=== PATIENT | female | born 2000 | race Caucasian/White ===

== ENCOUNTER 2022-09-11 10:30 | Day surgery (SDC) | payer OTHER ==
[~2022-09-11] VITALS: Ht 167.6 cm; Wt 107.2 kg
[2022-09-11 11:23] LABS: HCG,QUAL RESULT NEGATIVE (NEGATIVE)
[2022-09-11 12:36] LABS: BASOPHILS % (AUTO) 0.4 % (0.0-2.0); EOSINOPHILS # (AUTO) 0.2 K/uL (0.0-0.4); HEMATOCRIT 44.7 % (36-48); LYMPHOCYTES # (AUTO) 1.5 K/uL (1.0-5.5); LYMPHOCYTES % (AUTO) 14.2 % (20.5-51.5); MEAN CORPUSCULAR HEMOGLOBIN 32 pg (27-31); MEAN CORPUSCULAR HGB CONC 34 % (32-36); MEAN CORPUSCULAR VOLUME 95 fL (79.0-98.0); MONOCYTES # (AUTO) 0.5 K/uL (0.0-1.0); NEUTROPHILS # (AUTO) 8.5 K/uL (1.8-7.7); NEUTROPHILS % (AUTO) 78.4 % (40.0-70.0); PLATELET COUNT (AUTO) 315 K/uL (130-430); RED BLOOD CELL COUNT(AUTO) 4.72 MIL/uL (4.2-6.2); RED CELL DISTRIBUTION WIDTH 13.2 % (9.0-15.0); WHITE BLOOD COUNT (AUTO) 10.8 K/uL (4.8-10.8)
[2022-09-11] MEDS ORDERED: SEVOFLURANE 15 MIN GAS INH ONE (13:30)
[2022-09-11] MEDS ORDERED: NS IRRIG SOLN 1000 ML IR ONE (13:30)
[2022-09-11] MEDS ORDERED: LR 1,000 ML IV.SOLN IV ONE (13:30)
[2022-09-11] MEDS ORDERED: ceFAZolin SODIUM 2 GM VIAL ONE (13:30)
[2022-09-11] MEDS ORDERED: ONDANSETRON HCL 4 MG/2 ML VIAL ONE (13:30)
[2022-09-11] MEDS ORDERED: KETOROLAC TROMETHAMINE 30 MG VIAL ONE (13:30)
[2022-09-11] MEDS ORDERED: MIDAZOLAM HCL 2 MG/2 ML VIAL (VERSED) ONE (13:30)
[2022-09-11] MEDS ORDERED: ROCURONIUM BROMIDE 10 MG/ML (ZEMURON) ONE (13:30)
[2022-09-11] MEDS ORDERED: OXYTOCIN 10 UNIT/ML VIAL ONE (13:30)
[2022-09-11] MEDS ORDERED: BUPIVACAINE /EPINEPHRINE/PF 0.5% 30 ML VIAL INJ ONE (13:30)
[2022-09-11] MEDS ORDERED: LIDOCAINE 1% 10 MG/ML, 20 ML MDV ONE (13:30)
[2022-09-11] MEDS ORDERED: SUGAMMADEX SODIUM 200 MG/2 ML VIAL IV ONE (13:30)
[2022-09-11] MEDS ORDERED: fentaNYL CITRATE/PF 100 MCG/2 ML AMP ONE (13:30)
[2022-09-11] MEDS ORDERED: DEXAMETHASONE SOD PHOSPHATE 4 MG/ML VIAL ONE (13:30)
[2022-09-11] MEDS ORDERED: ACETAMINOPHEN I.V. 1000 MG 100 ML IV ONE (13:53)
[2022-09-11] MEDS ORDERED: METOCLOPRAMIDE HCL 10 MG/2 ML VIAL IVP PRN (14:15)
[2022-09-11] MEDS ORDERED: HYDROmorphone 1 MG/ML INJ. CARTRIDGE IVP PRN ×3 (14:15→17:15)
[2022-09-11] MEDS ORDERED: MIDAZOLAM HCL 2 MG/2 ML VIAL (VERSED) IVP PRN (14:15)
[2022-09-11] MEDS ORDERED: MEPERIDINE HCL/PF 25 MG/ML DISP.SYRIN IVP PRN (14:15)
[2022-09-11] MEDS ORDERED: LR 1,000 ML IV SCH ×2 (14:15→17:00)
[2022-09-11] MEDS: HYDROmorphone 1 MG/ML INJ. CARTRIDGE ONE ×2 (15:00→15:30)
[2022-09-11] MEDS ORDERED: NACL 0.9% 1,000 ML IV SCH (17:00)
[2022-09-11] MEDS ORDERED: OXYCODONE/ACETAMINOPHEN 5-325 TABLET PO PRN (17:15)
[2022-09-11] MEDS: DOCUSATE SODIUM 100 MG CAPSULE PO PRN (18:07)
[2022-09-11] MEDS: OXYCODONE/ACETAMINOPHEN 5-325 TABLET PO PRN (18:08)
[2022-09-11] MEDS: SIMETHICONE 80 MG TAB.CHEW PO SCH (21:16)
[2022-09-12 08:10] VITALS: BP_SYST 109
[2022-09-12] MEDS: SIMETHICONE 80 MG TAB.CHEW PO SCH ×2 (08:38→13:09)
[2022-09-12] MEDS: DOCUSATE SODIUM 100 MG CAPSULE PO PRN (08:38)
[2022-09-12] MEDS: OXYCODONE/ACETAMINOPHEN 5-325 TABLET PO PRN (15:18)
== END 2022-09-12 15:34 | disposition home or self-care (01) ==
LOC: SOR 10:30 → SMU 10:35 → SPU 16:28 → SOR 09-12 15:34
PROVIDERS: ATTEND Obstetrics & Gynecology
DX: N83.201 Unspecified ovarian cyst, right side (principal); R10.2 Pelvic and perineal pain; J45.909 Unspecified asthma, uncomplicated; E03.9 Hypothyroidism, unspecified; Z79.899 Other long term (current) drug therapy
CPT/HCPCS: 58925; 84703; 85025; 87081; 36415; 88305; 87426; J3490 ×2; J1100; J1885; J2001; J3465; J2405; J2590; J3010; J1170; J7120; J0131